=== PATIENT | male | born 1950 | race Caucasian/White ===

== ENCOUNTER 2016-04-07 18:18 | Inpatient (IN) | payer OTHER ==
[~2016-04-07] VITALS: Ht 182.9 cm; Wt 101.9 kg
[2016-04-07 19:24] LABS: Basophils # (auto) 0.1 uL; Basophils % (auto) 0.8 % (0.0-2.0); Eosinophils # (auto) 0.3 uL; Hematocrit 50.4 % (41.0-53.0); Hemoglobin 16.4 g/dL (13.5-17.5); Lymphocytes % (auto) 41.1 % (10.0-50.0); Mean Corpuscular Hemoglobin 30.2 pg (28.0-32.0); Mean Corpuscular Hgb Conc. 32.6 g/dL (32.0-36.0); Mean Corpuscular Volume 92.5 fL (80.0-100.0); Mean Platelet Volume 9.1 fL (7.4-10.4); Monocytes % (auto) 13.6 % (0.0-12.0); Neutrophils % (auto) 40.5 % (37.0-80.0); Platelet Count (auto) 259 10^3/uL (140-450); Red Cell Distribution Width 13.7 % (11.6-16.0); White Blood Cell 7.4 10^3/uL (4.4-10.8)
[2016-04-07 19:35] LABS: Albumin 3.9 g/dL (3.4-5.0); Calcium 8.1 mg/dL (8.5-10.1); Magnesium 2.2 mg/dL (1.6-2.6); Potassium 3.2 mmol/L (3.5-5.1)
[2016-04-07 19:37] LABS: BUN/Creatinine Ratio 9.6
[2016-04-07 19:39] LABS: Bilirubin, Total 1.6 mg/dL (0.2-1.0); Total Protein 7.7 g/dL (6.4-8.2)
[2016-04-07] MEDS ORDERED: ONDANSETRON HCL 4 MG/2 ML VIAL IV ONE (21:15)
[2016-04-07] MEDS ORDERED: MORPHINE SULFATE 4 MG/ML SYRG IV ONE (21:15)
[2016-04-07 21:46] LABS: B-Type Natriuretic Peptide 77.88 pg/mL (0-100)
[2016-04-07] MEDS ORDERED: HYDROcodone-ACET 5/325MG TAB PO PRN (22:45)
[2016-04-07] MEDS ORDERED: ONDANSETRON HCL 4 MG/2 ML VIAL IV PRN (22:45)
[2016-04-07] MEDS ORDERED: ACETAMINOPHEN 325 MG TAB PO PRN (22:45)
[2016-04-07] MEDS ORDERED: POTASSIUM CHL 20 Meq TABLET PO ONE (22:45)
[2016-04-07] MEDS ORDERED: NITROGLYCERIN 0.4 MG SL TAB SL PRN (22:45)
[2016-04-07] MEDS ORDERED: MORPHINE SULF INJ 2 MG/ML SYRINGE 1ML IV PRN ×2 (22:45)
[2016-04-07] MEDS ORDERED: CYCLOBENZAPRINE HCL 10 MG TAB PO PRN (22:45)
[2016-04-07 23:45] VITALS: BP 156/95
[2016-04-08] MEDS ORDERED: HYDR100T9 PO (02:29)
[2016-04-08] MEDS ORDERED: LISI2.5T47 PO (02:29)
[2016-04-08] MEDS ORDERED: POTA-167 PO (02:29)
[2016-04-08] MEDS ORDERED: FURO40TA PO (02:29)
[2016-04-08] MEDS ORDERED: CYCL7.5T15 PO (02:29)
[2016-04-08] MEDS ORDERED: ATOR20TA PO (02:29)
[2016-04-08] MEDS ORDERED: RIVA20TA PO (02:29)
[2016-04-08] MEDS ORDERED: SPIR25TA89 PO (02:29)
[2016-04-08] MEDS ORDERED: RANI1TAB6 PO (02:29)
[2016-04-08 05:00] VITALS: BP 114/72
[2016-04-08 05:57] LABS: Basophils # (auto) 0 uL; Basophils % (auto) 0.3 % (0.0-2.0); Eosinophils # (auto) 0.2 uL; Eosinophils % (auto) 3.3 % (0.0-7.0); Hematocrit 43.3 % (41.0-53.0); Hemoglobin 14.2 g/dL (13.5-17.5); Lymphocytes # (auto) 2.3 uL; Mean Corpuscular Hemoglobin 30.3 pg (28.0-32.0); Mean Corpuscular Hgb Conc. 32.7 g/dL (32.0-36.0); Mean Corpuscular Volume 92.7 fL (80.0-100.0); Mean Platelet Volume 8.8 fL (7.4-10.4); Monocytes # (auto) 0.8 uL; Monocytes % (auto) 11.8 % (0.0-12.0); Neutrophils # (auto) 3.8 uL; Neutrophils % (auto) 52.6 % (37.0-80.0); Platelet Count (auto) 219 10^3/uL (140-450); Red Cell Distribution Width 13.6 % (11.6-16.0); White Blood Cell 7.2 10^3/uL (4.4-10.8)
[2016-04-08 06:05] LABS: INR 1.1 (0.9-1.15); Partial Thromboplastin Time 28.9 sec (22.64-33.71); Prothrombin Time 11.3 sec (9.37-12.3)
[2016-04-08 06:21] LABS: Albumin 3.2 g/dL (3.4-5.0); BUN/Creatinine Ratio 14.4; Bilirubin, Total 1.9 mg/dL (0.2-1.0); Potassium 3.5 mmol/L (3.5-5.1); Total Protein 6.1 g/dL (6.4-8.2)
[2016-04-08 09:00] VITALS: BP 151/91
[2016-04-08] MEDS ORDERED: PATIENTS OWN MEDICATION (xarelto 20 MG) PO SCH (10:00)
[2016-04-08] MEDS: SPIRONOLACTONE 25 MG TAB PO SCH (10:20)
[2016-04-08] MEDS: ASPirin 81 mg TAB PO SCH (10:22)
[2016-04-08] MEDS: hydrALAZINE HCL 25 MG TAB PO SCH ×2 (10:22→22:05)
[2016-04-08] MEDS: LISINOPRIL 5 MG TAB PO SCH (10:23)
[2016-04-08] MEDS: FUROSEMIDE 40 MG TAB PO SCH (10:23)
[2016-04-08] MEDS: FAMOTIDINE 20 MG TAB PO SCH ×2 (10:24→22:06)
[2016-04-08] MEDS: POTASSIUM CHL 10 Meq TABLET PO SCH (10:24)
[2016-04-08 12:00] VITALS: BP 135/76
[2016-04-08 16:00] VITALS: BP 117/72
[2016-04-08] MEDS: RIVAROXABAN 20 MG TAB PO SCH (17:42)
[2016-04-08] MEDS: ATORVASTATIN 20 MG TAB PO SCH (22:05)
[2016-04-08 22:35] VITALS: BP 151/86
[2016-04-09 05:49] VITALS: BP 134/79
[2016-04-09 09:00] VITALS: BP 107/67
[2016-04-09] MEDS ORDERED: ADENOSINE 79 MG in GIVE UN-DILUTED 0 ML IV ONE ×2 (09:00→11:45)
[2016-04-09] MEDS: hydrALAZINE HCL 25 MG TAB PO SCH ×3 (09:16→21:50)
[2016-04-09] MEDS: LISINOPRIL 5 MG TAB PO SCH (09:16)
[2016-04-09] MEDS: FAMOTIDINE 20 MG TAB PO SCH ×2 (09:16→21:49)
[2016-04-09] MEDS: ASPirin 81 mg TAB PO SCH (09:16)
[2016-04-09] MEDS: POTASSIUM CHL 10 Meq TABLET PO SCH (09:17)
[2016-04-09] MEDS: SPIRONOLACTONE 25 MG TAB PO SCH (15:48)
[2016-04-09] MEDS: FUROSEMIDE 40 MG TAB PO SCH (15:48)
[2016-04-09 16:32] VITALS: BP 182/99
[2016-04-09] MEDS ORDERED: LISINOPRIL 5 MG TAB PO ONE (18:00)
[2016-04-09] MEDS: RIVAROXABAN 20 MG TAB PO SCH (18:21)
[2016-04-09] MEDS: ATORVASTATIN 20 MG TAB PO SCH (21:50)
[2016-04-09 22:10] VITALS: BP 194/99
[2016-04-09] MEDS ORDERED: ZOLPIDEM TARTRATE 5 MG TAB PO PRN (22:15)
[2016-04-10] MEDS: hydrALAZINE HCL 25 MG TAB PO SCH ×3 (05:25→10:20)
[2016-04-10 05:30] VITALS: BP 130/72
[2016-04-10 09:00] VITALS: BP 152/82
[2016-04-10] MEDS ORDERED: LISINOPRIL 10 MG TAB PO SCH (10:00)
[2016-04-10] MEDS: FUROSEMIDE 40 MG TAB PO SCH (10:19)
[2016-04-10] MEDS: POTASSIUM CHL 10 Meq TABLET PO SCH (10:20)
[2016-04-10] MEDS: ASPirin 81 mg TAB PO SCH (10:20)
[2016-04-10] MEDS: FAMOTIDINE 20 MG TAB PO SCH (10:21)
[2016-04-10] MEDS: SPIRONOLACTONE 25 MG TAB PO SCH (10:21)
[2016-04-10 12:41] VITALS: BP 161/98
[2016-04-10 13:00] VITALS: BP 161/98
== END 2016-04-10 13:30 | disposition home or self-care (01) | DRG 206 ==
LOC: ER 18:23 → TELE 18:24 → TELE-WESTW 23:40
PROVIDERS: ADMIT Internal Medicine; ATTEND Internal Medicine Pulmonary Disease
DX: M94.0 Chondrocostal junction syndrome [Tietze] (principal); I48.1 Persistent atrial fibrillation; I50.22 Chronic systolic (congestive) heart failure; J98.11 Atelectasis; I42.9 Cardiomyopathy, unspecified; E87.6 Hypokalemia; I10 Essential (primary) hypertension; E78.5 Hyperlipidemia, unspecified; I73.9 Peripheral vascular disease, unspecified; E66.01 Morbid (severe) obesity due to excess calories; Z90.49 Acquired absence of other specified parts of digestive tract; Z79.01 Long term (current) use of anticoagulants; Z98.890 Other specified postprocedural states; Z68.30 Body mass index [BMI] 30.0-30.9, adult
CPT/HCPCS: 36415; 71010; 78452; 80053; 83735; 83880; 84484; 85025; 85049; 85610; 85730; 93005; 93017; 93306; 94761; 96374; 96375; J0153; J2405

== ENCOUNTER 2020-01-15 10:41 | Inpatient (IN) | payer OTHER ==
[~2020-01-15] VITALS: Ht 175.3 cm; Wt 104.3 kg
[~2020-01-15 10:41] MED LIST: ATOR20TA PO; CYCL7.5T45 PO; FURO1TAB31 PO; HYDR-4298 PO; LISI2.5T47 PO; POTA-167 PO; RANI-435 PO; RIVA20TA PO; SPIR25TA8 PO
[2020-01-15 11:48] LABS: Basophils # (auto) 0 10 ^3/uL (0-0.2); Basophils % (auto) 0.7 % (0.0-2.0); Eosinophils # (auto) 0.1 10 ^3/uL (0-0.8); Hematocrit 47.4 % (41.0-53.0); Hemoglobin 16.1 g/dL (13.5-17.5); Mean Corpuscular Hemoglobin 32.5 pg (28.0-32.0); Mean Corpuscular Volume 95.5 fL (80.0-100.0); Monocytes # (auto) 0.9 10 ^3/uL (0-1.3); Monocytes % (auto) 13.9 % (0.0-12.0); Neutrophils # (auto) 3.6 10 ^3/uL (1.6-8.6); Neutrophils % (auto) 53.4 % (37.0-80.0); Nucleated Red Blood Cells % 0.1 %; Platelet Count (auto) 205 10^3/uL (140-450); Red Blood Cells 4.96 10^6/uL (4.5-5.90); Red Cell Distribution Width 13.9 % (11.8-14.3); White Blood Cell 6.7 10^3/uL (4.4-10.8)
[2020-01-15 12:07] LABS: INR 1.22 (0.9-1.15); Partial Thromboplastin Time 36.9 sec (23.0-31.2)
[2020-01-15 12:11] LABS: Albumin 3.8 g/dL (3.4-5.0); Calcium 8.4 mg/dL (8.5-10.1); Magnesium 2.2 mg/dL (1.6-2.6); Potassium 3.2 mmol/L (3.5-5.1)
[2020-01-15 12:15] LABS: BUN/Creatinine Ratio 12.2; Bilirubin, Total 2.1 mg/dL (0.2-1.0); Total Protein 6.7 g/dL (6.4-8.2)
[2020-01-15] MEDS ORDERED: POTASSIUM CHL 20 Meq TABLET PO ONE (12:45)
[2020-01-15] MEDS ORDERED: ACETAMINOPHEN 325 MG TAB PO ONE (12:45)
[2020-01-15] MEDS ORDERED: MORPHINE SULF INJ 2 MG/ML SYRINGE 1ML IV PRN (14:45)
[2020-01-15] MEDS ORDERED: NITROGLYCERIN 0.4 MG SL TAB SL PRN (14:45)
[2020-01-15] MEDS ORDERED: RIVAROXABAN 20 MG TAB PO SCH (18:00)
[2020-01-15 19:00] VITALS: BP 128/84
[2020-01-15 19:27] VITALS: BP 128/84
[2020-01-15] MEDS: CARVEDILOL 3.125 MG TAB PO SCH ×2 (22:00→22:06)
[2020-01-15] MEDS: ATORVASTATIN 20 MG TAB PO SCH (22:07)
[2020-01-15 22:20] VITALS: BP 145/78
[2020-01-15] MEDS: TEMAZEPAM 15 MG CAP PO PRN (22:50)
[2020-01-16] MEDS: predniSONE 20 MG TAB PO SCH ×2 (00:13→09:13)
[2020-01-16 05:30] VITALS: BP 148/74
[2020-01-16 09:00] VITALS: BP 143/76
[2020-01-16] MEDS: CARVEDILOL 3.125 MG TAB PO SCH (09:11)
[2020-01-16] MEDS: BUMETANIDE 1 MG TAB PO SCH (09:12)
[2020-01-16] MEDS: FAMOTIDINE 20 MG TAB PO SCH ×2 (09:12→22:27)
[2020-01-16] MEDS ORDERED: ATORVASTATIN 20 MG TAB PO SCH (10:00)
[2020-01-16] MEDS ORDERED: hydrALAZINE HCL 10 MG TAB PO PRN (11:45)
[2020-01-16 13:00] VITALS: BP 161/91
[2020-01-16 13:30] VITALS: BP 150/79
[2020-01-16] MEDS ORDERED: CIPROFLOXACIN 0.3%OPTH(EYE) SOL 5ML RIGHTEYE ONE (13:30)
[2020-01-16 15:36] LABS: BUN/Creatinine Ratio 11.6; Calcium 8.5 mg/dL (8.5-10.1); Potassium 3.9 mmol/L (3.5-5.1)
[2020-01-16 17:00] VITALS: BP 149/84
[2020-01-16 17:11] LABS: Urine WBC None Seen /hpf (0 - 3)
[2020-01-16 17:34] LABS: Urine Bacteria NONE SEEN /hpf (None Seen); Urine Blood Negative /uL (Negative); Urine Specific Gravity 1.017 (1.001-1.035)
[2020-01-16 17:35] LABS: Alcohol, Urine < 3.0 mg/dL (0-10); Amphetamine Screen, Urine NEGATIVE (NEGATIVE); Barbiturate Scree,Urine NEGATIVE (NEGATIVE); Benzodiazephine Screen, Urine NEGATIVE (NEGATIVE); Cocaine Screen, Urine NEGATIVE (NEGATIVE); Opiate Scree,Urine NEGATIVE (NEGATIVE); Phencyclidine Screen, Urine NEGATIVE (NEGATIVE)
[2020-01-16 17:54] LABS: Cannabinoid Screen, Urine NEGATIVE (NEGATIVE)
[2020-01-16] MEDS: CIPROFLOXACIN 0.3%OPTH(EYE) SOL 5ML RIGHTEYE SCH (18:07)
[2020-01-16 22:00] VITALS: BP 139/87
[2020-01-16] MEDS: ATORVASTATIN 20 MG TAB PO SCH (22:28)
[2020-01-16] MEDS: TEMAZEPAM 15 MG CAP PO PRN (22:29)
[2020-01-17 05:00] VITALS: BP 128/68
[2020-01-17] MEDS: CIPROFLOXACIN 0.3%OPTH(EYE) SOL 5ML RIGHTEYE SCH ×4 (06:00→17:45)
[2020-01-17 08:37] VITALS: BP 113/69
[2020-01-17] MEDS: BUMETANIDE 1 MG TAB PO SCH (09:54)
[2020-01-17] MEDS: predniSONE 20 MG TAB PO SCH (09:54)
[2020-01-17] MEDS: FAMOTIDINE 20 MG TAB PO SCH ×2 (09:54→23:07)
[2020-01-17] MEDS: LISINOPRIL 20 MG TAB PO SCH (09:55)
[2020-01-17 12:28] VITALS: BP 136/83
[2020-01-17 16:26] VITALS: BP 128/67
[2020-01-17 22:00] VITALS: BP 141/69
[2020-01-17] MEDS: ATORVASTATIN 20 MG TAB PO SCH (23:07)
[2020-01-17] MEDS: TEMAZEPAM 15 MG CAP PO PRN (23:08)
[2020-01-18 05:00] VITALS: BP 150/87
[2020-01-18] MEDS: CIPROFLOXACIN 0.3%OPTH(EYE) SOL 5ML RIGHTEYE SCH ×3 (06:00→12:00)
[2020-01-18 07:09] LABS: Basophils # (auto) 0 10 ^3/uL (0-0.2); Basophils % (auto) 0.2 % (0.0-2.0); Eosinophils # (auto) 0 10 ^3/uL (0-0.8); Eosinophils % (auto) 0.2 % (0.0-7.0); Hematocrit 47.6 % (41.0-53.0); Hemoglobin 16.2 g/dL (13.5-17.5); Lymphocytes # (auto) 2.5 10 ^3/uL (0.4-5.4); Mean Corpuscular Hemoglobin 32.5 pg (28.0-32.0); Mean Corpuscular Hgb Conc. 34.1 g/dL (32.0-36.0); Mean Corpuscular Volume 95.3 fL (80.0-100.0); Monocytes # (auto) 1.1 10 ^3/uL (0-1.3); Monocytes % (auto) 10.1 % (0.0-12.0); Neutrophils # (auto) 6.9 10 ^3/uL (1.6-8.6); Neutrophils % (auto) 65.5 % (37.0-80.0); Nucleated Red Blood Cells % 0.2 %; Platelet Count (auto) 231 10^3/uL (140-450); White Blood Cell 10.6 10^3/uL (4.4-10.8)
[2020-01-18 07:19] LABS: INR 1.03 (0.9-1.15); Partial Thromboplastin Time 25.4 sec (23.0-31.2)
[2020-01-18 07:28] LABS: Potassium 3.2 mmol/L (3.5-5.1)
[2020-01-18 07:32] LABS: BUN/Creatinine Ratio 17.4; Calcium 8.9 mg/dL (8.5-10.1)
[2020-01-18 09:00] VITALS: BP 147/74
[2020-01-18] MEDS ORDERED: VANCOMYCIN 1GM/250ML 250 ML IV ONE ×2 (09:00→09:15)
[2020-01-18] MEDS ORDERED: fentaNYL CITRATE 100 MCG/2 ML VL ONE (09:14)
[2020-01-18] MEDS ORDERED: MIDAZOLAM HCL 1MG/1ML-2 ML VIAL ONE (09:14)
[2020-01-18] MEDS ORDERED: VANCOMYCIN HCL 1000 MG VL ONE (09:14)
[2020-01-18] MEDS ORDERED: LIDOCAINE 2%HCL (LOCAL ANESTH.) INJ 20ML MDV ONE (09:15)
[2020-01-18] MEDS ORDERED: BACITRACIN INJ 50000 UNIT VIAL ONE (09:17)
[2020-01-18] MEDS ORDERED: POTASSIUM CHL 20 Meq TABLET PO ONE (09:45)
[2020-01-18] MEDS: LISINOPRIL 20 MG TAB PO SCH (10:30)
[2020-01-18] MEDS: predniSONE 20 MG TAB PO SCH (10:30)
[2020-01-18] MEDS: FAMOTIDINE 20 MG TAB PO SCH ×2 (10:30→21:14)
[2020-01-18 13:00] VITALS: BP 156/85
[2020-01-18] MEDS: HYDROcodone-ACET 5/325MG TAB PO PRN (15:10)
[2020-01-18 17:00] VITALS: BP 145/93
[2020-01-18] MEDS: ATORVASTATIN 20 MG TAB PO SCH (21:14)
[2020-01-18 22:00] VITALS: BP 147/95
[2020-01-19] MEDS: HYDROcodone-ACET 5/325MG TAB PO PRN (00:24)
[2020-01-19] MEDS: TEMAZEPAM 15 MG CAP PO PRN (00:24)
[2020-01-19 05:00] VITALS: BP 151/99
[2020-01-19 09:00] VITALS: BP 145/100
[2020-01-19] MEDS: predniSONE 20 MG TAB PO SCH (09:34)
[2020-01-19] MEDS: FAMOTIDINE 20 MG TAB PO SCH (09:34)
[2020-01-19] MEDS: LISINOPRIL 20 MG TAB PO SCH (09:35)
[2020-01-19] MEDS ORDERED: BUMETANIDE 2.5mg/10ml (0.25 mg/ml) INJ IV ONE (10:00)
[2020-01-19] MEDS ORDERED: METH4PAK PO (10:35)
[2020-01-19] MEDS ORDERED: PANT40TA2 PO (10:35)
[2020-01-19 13:00] VITALS: BP 133/91
[2020-01-19 14:31] VITALS: BP 133/91
[2020-01-19] MEDS ORDERED: RIVAROXABAN 20 MG TAB PO SCH (18:00)
== END 2020-01-19 15:49 | disposition home or self-care (01) | DRG 242 ==
LOC: ER 10:41 → OBSVTOIN 10:42 → TELE 10:42 → TELE-WESTW 19:03
PROVIDERS: ADMIT Nurse Practitioner Acute Care; ATTEND Internal Medicine
PROC: 0JH604Z Insertion of Pacemaker, Single Chamber into Chest Subcutaneous Tissue and Fascia, Open Approach (ICD-10-PCS; principal; 2020-01-18)
PROC: 02HK3JZ Insertion of Pacemaker Lead into Right Ventricle, Percutaneous Approach (ICD-10-PCS; 2020-01-18)
DX: I49.5 Sick sinus syndrome (principal); N17.0 Acute kidney failure with tubular necrosis; D68.59 Other primary thrombophilia; I13.0 Hypertensive heart and chronic kidney disease with heart failure and stage 1 through stage 4 chronic kidney disease, or unspecified chronic kidney disease; I48.20 Chronic atrial fibrillation, unspecified; E87.6 Hypokalemia; J44.9 Chronic obstructive pulmonary disease, unspecified; I27.20 Pulmonary hypertension, unspecified; G47.33 Obstructive sleep apnea (adult) (pediatric); G47.10 Hypersomnia, unspecified; E66.9 Obesity, unspecified; E78.5 Hyperlipidemia, unspecified; G51.0 Bell's palsy; I67.2 Cerebral atherosclerosis; I07.1 Rheumatic tricuspid insufficiency; I25.10 Atherosclerotic heart disease of native coronary artery without angina pectoris; I50.9 Heart failure, unspecified; K21.9 Gastro-esophageal reflux disease without esophagitis; N18.2 Chronic kidney disease, stage 2 (mild); Z79.01 Long term (current) use of anticoagulants; Z79.899 Other long term (current) drug therapy; Z82.49 Family history of ischemic heart disease and other diseases of the circulatory system; Z82.5 Family history of asthma and other chronic lower respiratory diseases; Z20.828 Contact with and (suspected) exposure to other viral communicable diseases; Z80.9 Family history of malignant neoplasm, unspecified; Z68.33 Body mass index [BMI] 33.0-33.9, adult
CPT/HCPCS: 33207; 36415; 70450; 70551; 71045; 80048; 80053; 80307; 81001; 82533; 83735; 83880; 84443; 84484; 85025; 85610; 85730; 93005; 93306; 93886; 99152; 99153; G0378; J2250